=== PATIENT | female | born 1990 | race African-American/Black ===

== ENCOUNTER 2020-06-27 08:28 | Emergency (ER) | payer OTHER ==
[~2020-06-27] VITALS: Ht 185.4 cm; Wt 84.8 kg
[~2020-06-27 08:28] MED LIST: BIRTH CONTROL; CLEOCIN HCL150 MG PO; DIFLUCAN200 MG PO; MEDROLDOSEPACK PO; PROAIR HFA8.5 GM INH
[2020-06-27 08:55] LABS: ABSOLUTE EOSINOPHILS 0.2 thou/uL (0.0-0.7); ABSOLUTE LYMPHOCYTES 2.3 thou/uL (0.8-5.3); ABSOLUTE MONOCYTES 0.3 thou/uL (0.0-1.2); ABSOLUTE NEUTROPHILS 3.3 thou/uL (1.6-8.1); BASOPHILS 0.5 %; EOSINOPHILS 3.3 %; HEMATOCRIT 37.3 % (37.0-47.0); HEMOGLOBIN 11.8 gm/dL (12.0-15.0); LYMPHOCYTES 37.1 %; MCH 22.9 pg (26.0-34.0); MCHC 31.8 g/dL (28.0-37.0); MCV 71.9 fL (80.0-100.0); MONOCYTES 5.6 %; MPV 8.1 fl. (7.2-11.1); NUCLEATED RBCS 0 /100WBC; PLATELET COUNT* 244 thou/uL (150-400); POLYS 53.5 %; RBC 5.18 mil/uL (4.20-5.00); WBC 6.1 thou/uL (4.0-11.0)
[2020-06-27 09:05] LABS: CALCIUM 8.3 mg/dL (8.5-10.1); CREATININE 0.9 mg/dL (0.6-1.3); POTASSIUM 3.6 mmol/L (3.5-5.1)
[2020-06-27 09:09] LABS: ALBUMIN 3.8 g/dL (3.4-5.0); TOTAL BILIRUBIN 0.5 mg/dL (<0.1-1.0); TOTAL PROTEIN 7.3 g/dL (6.4-8.2)
[2020-06-27 09:46] LABS: URINE BILIRUBIN NEGATIVE (Negative); URINE BLOOD NEGATIVE (Negative); URINE CLARITY CLEAR; URINE COLOR YELLOW; URINE GLUCOSE-RANDOM NEGATIVE (Negative); URINE KETONES NEGATIVE (Negative); URINE LEUKOCYTES-REFLEX NEGATIVE (Negative); URINE NITRITE-REFLEX NEGATIVE (Negative); URINE PROTEIN NEGATIVE (Negative); URINE SPECIFIC GRAVITY 1.025 (1.005-1.030); URINE UROBILINOGEN 0.2 E.U./dl (0.2-1.0)
[2020-06-27] MEDS ORDERED: BENTYL 20 MG TA20 M1 PO (09:54)
[2020-06-27] MEDS ORDERED: DOXYCYCLINE 10100 M2 PO (09:54)
[2020-06-27 10:02] VITALS: BP 118/78
[2020-06-27 10:42] LABS: HYPOCHROMASIA 2+; MICROCYTES 1+; PLATELET ESTIMATE ADEQUATE
== END 2020-06-27 10:03 | disposition home or self-care (01) ==
LOC: M.ERS 08:28
PROVIDERS: Emergency Medicine Emergency Medical Services
DX: R10.9 Unspecified abdominal pain (principal); R11.0 Nausea; J02.9 Acute pharyngitis, unspecified; R06.02 Shortness of breath; J45.909 Unspecified asthma, uncomplicated; Z91.013 Allergy to seafood

== ENCOUNTER 2020-11-10 17:04 | Emergency (ER) | payer OTHER ==
[~2020-11-10] VITALS: Ht 185.4 cm; Wt 83.9 kg
[~2020-11-10 17:04] MED LIST changes: +BENTYL 20 MG TA20 M1 PO; +DOXYCYCLINE 10100 M2 PO
[2020-11-10 17:17] VITALS: BP 140/85
== END 2020-11-10 18:35 | disposition home or self-care (01) ==
LOC: M.ERS 17:04
DX: J02.9 Acute pharyngitis, unspecified (principal); Z20.822 Contact with and (suspected) exposure to COVID-19; Z91.013 Allergy to seafood